=== PATIENT | male | born 1990 | race Caucasian/White ===

== ENCOUNTER 2024-04-17 15:47 | Emergency (ER) | payer BC, SELFPAY ==
[2024-04-17 15:49] VITALS: BP 138/83
[2024-04-17 16:18] VITALS: BMI 39.9
[2024-04-17 16:24] LABS: % Basophils 0.7 % (0-2); % Eosinophils 0.9 % (0-6); % Immature Granulocytes 0.4 % (0-0.5); % Lymphocytes 19.9 % (20.5-51.1); % Monocytes 6.3 % (1.7-9.3); % Neutrophils 71.8 % (42.2-75.2); Absolute Basophils 0.1 10^3/uL (0-0.2); Absolute Eosinophils 0.1 10^3/uL (0-0.7); Absolute Lymphocytes 2.2 10^3/uL (1.2-3.4); Absolute Monocytes 0.7 10^3/uL (0.1-0.6); Absolute Neutrophils 7.9 10^3/uL (1.4-6.5); Hematocrit 44.7 % (39.0-52.0); Mean Corp Hgb Conc. 33.6 g/dL (33.0-37.0); Mean Corpuscular Hgb 27.9 pg (27.0-31.0); Mean Corpuscular Volume 83.1 fL (80.0-94.0); Mean Platelet Volume 10.4 fL (7.4-10.4); Nucleated Red Blood Cells % 0 % (-); Platelet Count 260 10^3/uL (130-400); Red Blood Cell Count 5.38 10^6/uL (4.70-6.10); Red Cell Dist. Width 12.3 % (11.5-14.5); White Blood Cell Count 10.9 10^3/uL (4.8-10.8)
[2024-04-17 16:29] LABS: ALT (SGPT) 53 U/L (0-50); AST (SGOT) 38 U/L (17-59); Albumin 4.6 g/dl (3.5-5.0); Alkaline Phosphatase 86 U/L (38-126); Blood Urea Nitrogen 14 mg/dl (9-20); Calcium 10.2 mg/dl (8.4-10.2); Carbon Dioxide 25 mmol/L (22-30); Chloride 106 mmol/L (98-107); Estimated Creatinine Clearance > 125 ml/min; Glucose 117 mg/dl (70-99); Potassium 4.6 mmol/L (3.5-5.1); Sodium 142 mmol/L (135-145); Total Bilirubin 0.5 mg/dl (0.2-1.3); Total Protein 7.9 g/dl (6.3-8.2); eGFR > 60.00
[2024-04-17 16:39] LABS: Troponin I < 0.012 ng/ml
--- NOTE | 2024-04-17 17:09 | ED.GENMED ---
History of Present Illness
General
Chief Complaint: Chest Pain
Source: patient
Exam Limitations: none
Time Seen by Provider: 04/17/24 17:01
Travel History
Have you had any contact with someone who has COVID-19?: No
Do you have any symptoms of coronavirus? Fever > 100 degrees, chills, cough, shortness of breath, sore throat, loss of taste or smell, muscle aches, or headache?: No
History of Present Illness
History of Present Illness:
See MDM
Past History
Past History
ED Past Medical History: None
ED Past Surgical History: None
Social History
Tobacco: Smoker
Alcohol: None
Phy Exam
Physical Exam
Physical Exam:
See MDM
Scores
Heart Score for Chest Pain Patients
STEMI patient?: No
History: Slightly or Non-Suspicious
ECG: Normal
Age: </= 45 years
Risk Factors: No Risk Factors
Troponin: </= Normal Limit
Heart Score for Chest Pain Patients: 0
Heart Score Risk: 2.5% MACE over next 6 weeks
Course
Orders/Labs/Results
Orders:
Orders
04/17/24 15:48
Electrocardiogram (*1) Urgent
Reason for Study: Chest Pain
04/17/24 15:49
EKG- Treatment ONCE
04/17/24 16:07
Complete Blood Count/With Diff Urgent
Comprehensive Metabolic Panel Urgent
Troponin I Urgent
04/17/24 17:09
CR Chest - 2 Views Urgent
Comment:
Reason For Exam: left side chest pain
Abnormal Lab Results
04/17/24
16:07
WBC 10.9 H 10^3/uL
(4.8-10.8)
Absolute Neuts (auto) 7.9 H 10^3/uL
(1.4-6.5)
Absolute Monos (auto) 0.7 H 10^3/uL
(0.1-0.6)
Lymphocytes % 19.9 L %
(20.5-51.1)
Glucose 117 H mg/dl
(70-99)
ALT 53 H U/L
(0-50)
04/17/24 16:07
04/17/24 16:07
Vital Signs
Initial and Last Documented VS:
Initial Vital Signs
Temp Pulse Resp BP Pulse Ox
97.7 F 60 16 138/83 98
04/17/24 15:49 04/17/24 15:49 04/17/24 15:49 04/17/24 15:49 04/17/24 15:49
Last Documented Vital Signs
Temp Pulse Resp BP Pulse Ox
97.7 F 60 16 138/83 98
04/17/24 15:49 04/17/24 15:49 04/17/24 15:49 04/17/24 15:49 04/17/24 15:49
MDM/Problems Addressed
Differential Diagnosis Includes:
HPI and MDM Narrative:
33-year-old male presenting with resolving left-sided chest pain. Patient noticed the pain while he was playing disc golf. He went home and took an hour nap. When he woke up, he still had the pain. Later in the day the symptoms got worse and he
became short of breath. Due to the worsening symptoms, he went to urgent care with did EKG and sent emergency department for further evaluation. Symptoms were not worse with exertion. He did have an issue like this several months back and his
doctor said he has high blood pressure, high cholesterol and may be reflux. Patient does not believe he has reflux disease. I did discuss that his blood pressure is elevated here. His EKG and troponin are negative. Will obtain chest x-ray to
complete the evaluation but discussed noncardiac chest pain and follow-up with PCP
Physical exam
General: Well appearing and non-toxic
HEENT: protecting airway
Neck: appears supple
CV: No evidence of cyanosis. Regular rate and rhythm. No murmur
Resp: No accessory muscle use. Lungs clear
Abd: Non-distended
Extremities: No deformities
Neuro: alert
Psych: Normal affect
Skin: Intact
Problems Addressed including Acute and Chronic Conditions affecting care:
1. Chest pain
Acuity: acute
Prognosis: stable
Details: Given that it is not exertional, there is a normal EKG and normal troponin, doubt ACS. Will obtain chest x-ray and discussed having this further evaluated by PCP
Updates
Chest x-ray clear. Discussed follow-up with PCP to evaluate his symptoms and elevated blood pressure
Differential Diagnosis (but not limited to): Noncardiac chest pain, pericarditis, pneumothorax
Testing considered: PE but no tachycardia or hypoxia or clinical evidence of DVT
Drug therapy (if applicable): OTC meds, please see d/c instruction regarding Rx drugs
Amount and/or Complexity of Data Reviewed
Clinical info obtained from: Patient
External data reviewed: N/A
Labs I independently reviewed (but not limited to): Normal troponin
Radiology: N/A
Pulse Ox: X-ray independently reviewed: Chest x-ray clear
EKG independently reviewed: Sinus rhythm, normal axis, no STEMI
Project Controls Specialist: Sinus rhythm
Critical Care: N/A
Risk of Complication:
Social Determinants of health: Good social support
Discussed with other providers: N/A
Escalation of Care includes Admit/Obs: After being observed in the Emergency Department, pt stable for discharge.
Occasional wrong word or 'sound a like' substitutions may have occurred due to the inherent limitations of voice recognition software. Read the chart carefully and recognize, using context, where substitutions have occurred.
*Critical Care Note
Total Time (30-74mins, 75-104mins- exclusive of procedures): Not Applicable
ED Attending Note
-
Portions of this chart may have been created with voice recognition software.� Occasional wrong word or��sound alike� substitutions may have occurred due to the inherent limitations of voice recognition software.
Discharge Plan
Departure
Patient Disposition: Home (Routine Discharge)
Date of Disposition: 04/17/24
Time of Disposition: 18:26
Patient with high blood pressure during this ER visit?: Yes
Discharge Problem:
Chest pain
Instructions: Chest Pain PCP Follow Up, BLOOD PRESSURE
Referrals:
UNKNOWN - PT DOES,NOT KNOW [Family Provider] -
Activity Restrictions/Additional Instructions:
Please return for any worsening symptoms.
You may return at any time if you have further concerns.
Please follow up with your doctor at the first available appointment, preferably this week.
Thank you for choosing [facility].
Interventions
Interventions:
*Risk Screen - Suicide Last Done: 04/17/24 16:18
*General Assessment Last Done: 04/17/24 16:18
*Neglect/Abuse Screening Last Done: 04/17/24 16:18
*ED COVID-19 Vaccine History Last Done: 04/17/24 15:49
Discharge Date and Time
Print Language: BULGARIAN
== END 2024-04-17 18:46 | disposition home or self-care (01) ==
LOC: EMR 15:47
PROVIDERS: Emergency Medicine; EMERGENCY PHYSICIAN Student in an Organized Health Care Education/Training Program
DX: R07.89 Other chest pain (principal); R06.02 Shortness of breath; I10 Essential (primary) hypertension; E78.00 Pure hypercholesterolemia, unspecified; F17.200 Nicotine dependence, unspecified, uncomplicated
CPT/HCPCS: 99283; 71046; 80053; 84484; 85025; 93005